=== PATIENT | male | born 1995 ===

== ENCOUNTER 2018-04-26 18:35 | Emergency (ER) | payer OTHER ==
[2018-04-26 18:36] VITALS: BMI 18.8
[2018-04-26 18:39] VITALS: RESP 18; TEMP 98.8
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
[2018-04-26 19:35] VITALS: BP 122/90; PULSE 75; O2SAT 100
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
== END 2018-04-26 19:35 | disposition home or self-care (01) ==
LOC: ED 18:35
DX: Z04.1 Encounter for examination and observation following transport accident (principal); V49.49XA Driver injured in collision with other motor vehicles in traffic accident, initial encounter; W22.11XA Striking against or struck by driver side automobile airbag, initial encounter; Y92.410 Unspecified street and highway as the place of occurrence of the external cause